=== PATIENT | female | born 1995 | race Caucasian/White ===

== ENCOUNTER 2017-12-10 10:33 | Outpatient (CLI) | payer BC | END 2017-12-10 12:15 | disposition home or self-care (01) | LOC: OBT 10:33 → L-D 10:33 → OBT 12:15 | DX: O36.8130 Decreased fetal movements, third trimester, not applicable or unspecified (principal); Z3A.36 36 weeks gestation of pregnancy | CPT/HCPCS: 76818 ==

== ENCOUNTER 2017-12-21 17:07 | Inpatient (IN) | payer BC ==
[~2017-12-21 17:07] MED LIST: OXYTOCIN 30 UNITS/LR 500 ML BAG IV
[2017-12-21] MEDS: LACTATED RINGER'S 500 ML IV (18:30)
[2017-12-21] MEDS: LACTATED RINGER'S 1,000 ML IV ×2 (18:40→20:52)
[2017-12-21] MEDS ORDERED: BUTORPHANOL 2 MG INJ IV (19:30)
[2017-12-21] MEDS ORDERED: METHYLERGONOVINE 0.2 MG INJ IM (19:30)
[2017-12-21] MEDS ORDERED: MISOPROSTOL 200 MCG TAB PR (19:30)
[2017-12-21] MEDS ORDERED: LIDOCAINE 1% (MPF) 30 ML INJ INJ (19:30)
[2017-12-21] MEDS ORDERED: AMPICILLIN 2 GM/NS (PMX) 100 ML IV (19:30)
[2017-12-21] MEDS ORDERED: OXYTOCIN 30 UNITS/LR 500 ML IV ×2 (19:30)
[2017-12-21] MEDS ORDERED: CARBOPROST 250 MCG INJ IM (19:30)
[2017-12-21 20:11] LABS: ADD MAN DIFF? NO
[2017-12-21 20:13] LABS: BASOPHILS % 0.3 % (0.0-2.0); EOSINOPHILS % 0.2 % (0.0-7.0); HEMATOCRIT 38.4 % (37.0-47.0); HEMOGLOBIN 13.3 g/dl (12.0-16.0); LYMPHOCYTES % 17.8 % (15.0-51.0); MEAN CORPUSCULAR HEMOGLOBIN 31.2 pg (29.0-33.0); MEAN CORPUSCULAR HGB CONC 34.6 g/dl (32.0-37.0); MEAN CORPUSCULAR VOLUME 90.1 fl (82.0-101.0); MEAN PLATELET VOLUME 9.1 fl (7.4-10.4); MONOCYTE # 0.7 10^3/ul (0.3-0.9); MONOCYTES % 6.4 % (0.0-11.0); NEUTROPHIL # 8.2 10^3/ul (1.6-7.5); NEUTROPHILS % 74.7 % (39.0-77.0); PLATELET COUNT 202 10^3/UL (140-415); RED BLOOD COUNT 4.26 10^6/ul (4.20-5.40)
[2017-12-21 20:45] LABS: INR 0.86; PROTIME 11.8 Sec (11.9-14.9); PT RATIO 0.9
[2017-12-21 21:03] LABS: HEPATITIS B SURFACE ANTIGEN NEGATIVE (NEGATIVE)
[2017-12-21] MEDS: CITRIC ACID/SODIUM CITRATE 15 ML CUP PO (21:31)
[2017-12-21] MEDS: FAMOTIDINE 20 MG INJ IV (21:32)
[2017-12-21] MEDS: METOCLOPRAMIDE 10 MG INJ IV (21:32)
[2017-12-21] MEDS ORDERED: morphine SULFATE/PF (10 MG/10 ML) INJ (21:59)
[2017-12-21] MEDS ORDERED: BUPIVACAINE 0.75%/DEXT (SPINAL) 2 ML INJ (22:14)
[2017-12-21] MEDS ORDERED: PHENYLephrine (100 MCG/ML) 10ML SYG (22:14)
[2017-12-21] MEDS: CEFAZOLIN 2 GM/50 ML (PMX) 50 ML IVPB (22:25)
[2017-12-21] MEDS ORDERED: FENTAnyl 50 MCG/ML VIAL (22:36)
[2017-12-21] MEDS ORDERED: ONDANSETRON 4 MG INJ (22:38)
[2017-12-21] MEDS ORDERED: AMPICILLIN 1 GM/NS (PMX) 50 ML IV (23:30)
[2017-12-21] MEDS: OXYTOCIN 30 UNITS/LR 500 ML IV (23:45)
[2017-12-21] MEDS ORDERED: DEXTROSE 5%-LR 1,000 ML IV (23:59)
[2017-12-22] MEDS ORDERED: OXYTOCIN 30 UNITS/LR 500 ML IV
[2017-12-22] MEDS ORDERED: METHYLERGONOVINE 0.2 MG INJ IM
[2017-12-22] MEDS ORDERED: CARBOPROST 250 MCG INJ IM
[2017-12-22] MEDS ORDERED: MISOPROSTOL 200 MCG TAB PR
[2017-12-22] MEDS ORDERED: DIPHENHYDRAMINE 50 MG INJ IV
[2017-12-22] MEDS ORDERED: METHYLERGONOVINE 0.2 MG TAB PO
[2017-12-22] MEDS ORDERED: FENTAnyl 50 MCG/ML VIAL IV ×2
[2017-12-22] MEDS ORDERED: METOCLOPRAMIDE 10 MG INJ IV
[2017-12-22] MEDS ORDERED: HYDROmorphONE 1 MG/5 ML IV SYRINGE IV ×2
[2017-12-22] MEDS: KETOROLAC 30 MG INJ IV ×3 (00:25→17:33)
[2017-12-22] MEDS ORDERED: KETOROLAC 30 MG INJ IV (00:30)
[2017-12-22] MEDS ORDERED: NALOXONE (0.4 MG/ML) INJ IV ×2 (00:30)
[2017-12-22] MEDS: ONDANSETRON 4 MG INJ IV (02:17)
[2017-12-22] MEDS: OXYTOCIN 30 UNITS/LR 500 ML IV (03:27)
[2017-12-22 08:59] LABS: ADD MAN DIFF? NO
[2017-12-22 09:03] LABS: WHITE BLOOD COUNT 16.7 10^3/ul (4.8-10.8)
[2017-12-22 09:03] LABS: BASOPHILS % 0.2 % (0.0-2.0); HEMATOCRIT 30.8 % (37.0-47.0); HEMOGLOBIN 10.8 g/dl (12.0-16.0); LYMPHOCYTES # 1.5 10^3/ul (0.8-2.9); LYMPHOCYTES % 8.9 % (15.0-51.0); MEAN CORPUSCULAR HEMOGLOBIN 31.3 pg (29.0-33.0); MEAN CORPUSCULAR HGB CONC 35.1 g/dl (32.0-37.0); MEAN CORPUSCULAR VOLUME 89.3 fl (82.0-101.0); MEAN PLATELET VOLUME 9.6 fl (7.4-10.4); MONOCYTE # 1.1 10^3/ul (0.3-0.9); MONOCYTES % 6.5 % (0.0-11.0); NEUTROPHILS % 83.7 % (39.0-77.0); PLATELET COUNT 176 10^3/UL (140-415); RED BLOOD COUNT 3.45 10^6/ul (4.20-5.40); RED CELL DISTRIBUTION WIDTH 12.8 % (11.5-14.5)
[2017-12-22] MEDS: SENNA/DOCUSATE NA (8.6MG/50MG) TAB PO ×2 (10:24→22:02)
[2017-12-22] MEDS: LACTATED RINGER'S 1,000 ML IV (13:44)
[2017-12-22 14:56] LABS: RAPID PLASMA REAGIN NONREACTIVE (NR)
[2017-12-22] MEDS: IBUPROFEN 800 MG TAB PO (22:00)
[2017-12-22] MEDS: OXYCODONE/ACETAMINOPHEN (5/325) TAB PO (22:02)
[2017-12-23] MEDS: OXYCODONE/ACETAMINOPHEN (5/325) TAB PO ×4 (03:56→22:00)
[2017-12-23] MEDS: SENNA/DOCUSATE NA (8.6MG/50MG) TAB PO ×2 (10:15→21:00)
[2017-12-23] MEDS: IBUPROFEN 800 MG TAB PO ×3 (10:16→22:04)
[2017-12-24] MEDS: IBUPROFEN 800 MG TAB PO ×2 (05:54→13:30)
[2017-12-24] MEDS: OXYCODONE/ACETAMINOPHEN (5/325) TAB PO ×2 (05:55→14:00)
[2017-12-24] MEDS: SENNA/DOCUSATE NA (8.6MG/50MG) TAB PO (09:00)
[2017-12-24] MEDS: DIPHTH/TET/ACEL PERTUSS (ADULT) 0.5 ML VIAL IM* (09:03)
[2017-12-24] MEDS: MEASLES,MUMPS,RUBELLA VACCINE INJ SC* (09:03)
[2017-12-24] MEDS: LANOLIN 7 GM TUBE TOP (13:31)
== END 2017-12-24 18:14 | disposition home or self-care (01) | DRG 766 ==
LOC: OBT 17:07 → PP1 12-22 02:00 → L-D 17:07 → OBT 19:10 → L-D 19:10
PROVIDERS: Obstetrics & Gynecology
PROC: 10D00Z1 Extraction of Products of Conception, Low, Open Approach (ICD-10-PCS; principal; 2017-12-21)
PROC: 3E033VJ Introduction of Other Hormone into Peripheral Vein, Percutaneous Approach (ICD-10-PCS; 2017-12-21)
DX: O75.82 Onset (spontaneous) of labor after 37 completed weeks of gestation but before 39 completed weeks gestation, with delivery by (planned) cesarean section (principal); Z3A.38 38 weeks gestation of pregnancy; Z37.0 Single live birth
CPT/HCPCS: 36415; 76818; 85025; 85610; 85730; 86592; 86850; 86900; 86901; 87340; 99464